=== PATIENT | male | born 1985 | race Two or more races ===

== ENCOUNTER 2024-12-20 17:34 | Emergency (ER) | payer MEDICAID, OTHER ==
[~2024-12-20] VITALS: Ht 175.3 cm; Wt 86.5 kg
[2024-12-20 17:35] VITALS: BP 128/83; PULSE 59; RESP 18; TEMP 97.4; O2SAT 97
[2024-12-20] MEDS ORDERED: ACET500T58 PO (18:28)
--- NOTE | 2024-12-20 18:30 | ED.PDOC ---
Musculoskeletal HPI Comments 39-YEAR-OLD MALE PRESENTS TO ER WITH COMPLAINTS OF FALL INJURY X1 DAY. PATIENT REPORTS 09/23 RIGHT ANKLE/RIGHT FOOT PAIN AND RIGHT HUMERUS PAIN S/P FALL OFF A 5 FT HIGH LADDER AND LANDING ON HIS RIGHT SIDE ONTO CEMENT YESTERDAY EVENING. DENIES HEAD INJURY/LOC AND DENIES ANY OTHER REPORTED INJURIES. DENIES USE OF MEDICATIONS FOR CURRENT SYMPTOMS AND PRESENTS TO ER AMBULATORY ON ARRIVAL, WITH STEADY GAIT, IN NO DISTRESS WITH MILD TTP/ECCHYMOSIS NOTED TO RIGHT SHOULDER. DENIES HEADACHE, NECK PAIN, NUMBNESS/TINGLING, SHORTNESS OF BREATH, CHEST PAIN, ABDOMINAL PAIN, HIP PAIN OR ANY FURTHER SYMPTOMS/COMPLAINTS Chief Complaint: Fall Injury Time Seen by MD: 18:12 Primary Care Provider: UNKNOWN Reviewed Notes: Nurses Notes, Medications, Allergies Allergies: Coded Allergies: NO KNOWN ALLERGIES (Unverified , 12/20/24) Home Meds Active Scripts Acetaminophen (Acetaminophen) 500 Mg Tab, 500 MG PO Q4HPRN, #30 TAB 0 Refills Prov:TYLER BAE 12/20/24 Information Source: Patient Mode of Arrival: Ambulatory Past Medical History PAST MEDICAL HISTORY: Denies Surgical History: Denies all surgeries Family History Family History: Unknown Social History Smoker: Non-Smoker Alcohol: Denies ETOH Use Drugs: Denies Drug Use Lives In: Home Constitutional: denies: chills, diaphoresis, fatigue, fever, malaise, sweats, weakness, others EENTM: denies: blurred vision, double vision, ear bleeding, ear discharge, ear drainage, ear pain, ear ringing, eye pain, eye redness, hearing loss, mouth pain, mouth swelling, nasal discharge, nose bleeding, nose congestion, nose pain, photophobia, tearing, throat pain, throat swelling, voice changes, others Respiratory: denies: cough, hemoptysis, orthopnea, SOB at rest, shortness of breath, SOB with excertion, stridor, wheezing, others Cardiovascular: denies: chest pain, dizzy spells, diaphoresis, Dyspnea on exertion, edema, irregular heart beat, left arm pain, lightheadedness, palpitations, PND, syncope, others Gastrointestinal: denies: abdomen distended, abdominal pain, blood streaked bowels, constipated, diarrhea, dysphagia, difficulty swallowing, hematemesis, melena, nausea, poor appetite, poor fluid intake, rectal bleeding, rectal pain, vomiting, others Genitourinary: denies: burning, dysuria, flank pain, frequency, hematuria, incontinence, penile discharge, penile sore, pain, testicle pain, testicle swelling, urgency, others Neurological: denies: dizziness, fainting, headache, left sided numbness, left sided weakness, numbness, paresthesia, pre-existing deficit, right sided numbness, right sided weakness, seizure, speech problems, tingling, tremors, weakness, others Musculoskeletal: reports: others (As stated in HPI) Integumetry: reports: others (As stated in HPI) Allergic/Immunocompromised: denies: Difficulty Healing, Frequent Infections, Hives, Itching, others Hematologic/Lymphatic: denies: anemia, blood clots, easy bleeding, easy bruising, swollen glands, others Endocrine: denies: excessive hunger, excessive sweating, excessive thirst, excessive urination, flushing, intolerance to cold, intolerance to heat, unexp lained weight gain, unexplained weight loss, others Psychiatric: denies: anxiety, bipolar disorder, depression, hopeless, panic disorder, schizophrenia, sleepless, suicidal, others Physical Exam General Appearance: No Apparent Distress HEENT: Normal ENT Inspection, PERRL/EOMI, Pharynx Normal, TMs Normal Neck: Full Range of Motion, Non-Tender, Normal Respiratory: Chest Non-Tender, Lungs Clear, No Accessory Muscle Use, No Respiratory Distress, Normal Breath Sounds Cardiovascular: No Murmur, No Gallop, Regular Rate/Rhythm Breast Exam: Deferred Gastrointestinal: Non Tender, No Pulsatile Mass, Soft Genitalia: Deferred Pelvic: Deferred Rectal: Deferred Extremities: Normal capillary refill, Normal range of motion Musculoskeletal : Extremity Location: Ankle (TTP noted to right lateral malleolus and right calcaneus. No other TTP to right lower extremity noted. No skin changes appreciated. Pulses intact. Steady gait noted), Shoulder (Mild TTP/minimal ecchymosis noted to right shoulder. No deformity/further skin changes noted. No other TTP to right upper extremity noted. Pulses intact. 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 Was a procedure done?: No Sedation Sedation?: No Differential Diagnosis EXT Differential Diagnosis: Dislocation, Laceration, Neurovascular injury X-Ray, Labs, Meds, VS Vital Signs Date Time Temp Pulse Resp B/P (MAP) Pulse Ox O2 Delivery O2 Flow Rate FiO2 12/20/24 17:35 97.4 59 18 128/83 97 97.4 PATIENT: MARSHALL MIMS ACCT: [id number] UNIT: [id number] : 1985 LOC: ER ROOM / BED: / AGE / SEX: 39 / M ADM STATUS: REG ER SERVICE 18 ORDERING PHYSICIAN: TYLER BAE PROCEDURE(s): RANKL - R ANKLE 3 VIEW REASON: right ankle pain ORDER NUMBER(s): [id number], ACCESSION NUMBER(s): [id number] CLINICAL INDICATION: right ankle pain TECHNIQUE: 3 radiographic views of the right ankle were obtained. Comparison: None FINDINGS/IMPRESSION: Distal tibia and fibula are intact. Foreshortening of the calcaneus suggests either acute or prior injury fracture correlate clinically. ATED BY: TONI GOLDMAN Jr., DO DICTATED DATE/TIME: 12/20/241856 SIGNED BY: TONI GOLDMAN Jr., SIGNED DATE/TIME: 12/20/241856 CC: PATIENT: MARSHALL MIMS ACCT: [id number] UNIT: [id number] : 1985 LOC: ER ROOM / BED: / AGE / SEX: 39 / M ADM STATUS: REG ER SERVICE 18 ORDERING PHYSICIAN: TYLER BAE PROCEDURE(s): RANKL - R ANKLE 3 VIEW REASON: right ankle pain ORDER NUMBER(s): [id number], ACCESSION NUMBER(s): [id number] CLINICAL INDICATION: right ankle pain TECHNIQUE: 3 radiographic views of the right ankle were obtained. Comparison: None FINDINGS/IMPRESSION: Distal tibia and fibula are intact. Foreshortening of the calcaneus suggests either acute or prior injury fracture correlate clinically. ATED BY: TONI GOLDMAN Jr., DO DICTATED DATE/TIME: 12/20/241856 SIGNED BY: TONI GOLDMAN Jr., DO SIGNED DATE/TIME: 12/20/241856 CC: PATIENT: MARSHALL MIMS ACCT: [id number] UNIT: [id number] : 1985 LOC: ER ROOM / BED: / AGE / SEX: 39 / M ADM STATUS: REG ER SERVICE 18 ORDERING PHYSICIAN: TYLER BAE PROCEDURE(s): RHUM - R HUMERUS XRAY REASON: right humerus pain ORDER NUMBER(s): [id number], ACCESSION NUMBER(s): [id number] CLINICAL INDICATION: right humerus pain TECHNIQUE: 2 radiographic views of the right humerus were obtained. Comparison: None FINDINGS/IMPRESSION: Bony alignment is normal. No fracture or dislocation. No radiopaque foreign body. ATED BY: TONI GOLDMAN Jr., DO DICTATED DATE/TIME: 12/20/241858 SIGNED BY: TONI GOLDMAN Jr., DO SIGNED DATE/TIME: 12/20/241858 CC: Right ankle x-ray reviewed Right foot x-ray reviewed Right humerus x-ray reviewed Right posterior ankle splint applied Crutches ordered, patient educated on proper use. Advised on non-weight bearing right leg Patient neurovascularly intact and reported improvement in symptoms prior to discharge Advised on elevation and alternate ice on/off as needed for pain Advised to follow up with PCP and orthopedics in 1-2 days Patient verbalized understanding and agreeable with current plan of care Advised to return to ER immediately if symptoms worsen Images Reviewed?: Images reviewed and evaluated by me Time of 1ST Reevaluation: 18:04 Reevaluation 1ST: N/A Patient Education/Counseling: Diagnosis, Treatment, Prognosis, Need For Follow Up Family Education/Counseling: No Family Present Departure 1 Departure Time of Disposition: 18:22 Impression: Primary Impression: Calcaneus fracture, right Qualified Codes: S92.001A - Unspecified fracture of right calcaneus, initial encounter for closed fracture Additional Impressions: Contusion of shoulder, right Qualified Codes: S40.011A - Contusion of right shoulder, initial encounter Right ankle sprain Qualified Codes: S93.401A - Sprain of unspecified ligament of right ankle, initial encounter Disposition: HOME / SELF CARE / HOMELESS Condition: Stable Referrals: CHAO KHOURY MD r/o right calcaneus fracture e-Prescriptions Acetaminophen (Acetaminophen) 500 Mg Tab 500 MG PO Q4HPRN, #30 TAB 0 Refills Prov: TYLER BAE 12/20/24 Discharged With: Friend Critical Care Note Critical Care Time?: No Stability Stability form required: No Heart Score Heart Score: Heart Score Response (Comments) Value History N/A 0 EKG N/A 0 Age N/A 0 Risk Factors N/A 0 Troponin N/A 0 Total 0 TYLER BAE Dec 20, 2024 18:30
--- NOTE | 2024-12-20 18:52 | DVH ---
CLINICAL HISTORY: right foot pain TECHNIQUE: 3 views of the right foot were obtained. COMPARISON: XY R ANKLE 3 VIEW on DOS: 12/20/24 FINDINGS: No acute fracture or dislocation is seen. No soft tissue abnormality is evident. There are no signi ficant degenerative changes. IMPRESSION: NO ACUTE RADIOGRAPHIC ABNORMALITY OF THE RIGHT FOOT.
--- NOTE | 2024-12-20 18:59 | DVH ---
CLINICAL INDICATION: right ankle pain TECHNIQUE: 3 radiographic views of the right ankle were obtained. Comparison: None FINDINGS/IMPRESSION: Distal tibia and fibula are intact. Foreshortening of the calcaneus suggests either acute or prior injury fracture correlate clinically.
--- NOTE | 2024-12-20 19:01 | DVH ---
CLINICAL INDICATION: right humerus pain TECHNIQUE: 2 radiographic views of the right humerus were obtained. Comparison: None FINDINGS/IMPRESSION: Bony alignment is normal. No fracture or dislocation. No radiopaque foreign body.
== END 2024-12-20 19:35 | disposition home or self-care (01) ==
LOC: ER 17:36
DX: S82.891A Other fracture of right lower leg, initial encounter for closed fracture (principal); S93.491A Sprain of other ligament of right ankle, initial encounter; S40.011A Contusion of right shoulder, initial encounter; X58.XXXA Exposure to other specified factors, initial encounter; Y93.89 Activity, other specified; Y92.89 Other specified places as the place of occurrence of the external cause; Y99.8 Other external cause status
CPT/HCPCS: 29515; 73060; 73610; 73630